=== PATIENT | male | born 1960 | race Two or more races ===

== ENCOUNTER 2023-01-24 17:59 | Emergency (ER) | payer SELFPAY ==
[~2023-01-24] VITALS: Ht 167.6 cm; Wt 68.0 kg
[2023-01-24] MEDS ORDERED: IBUPROFEN 400MG TABLET PO ONE (20:30)
[2023-01-25 04:00] VITALS: BP 118/72
[2023-01-25] MEDS ORDERED: CEPH500T PO (04:05)
[2023-01-25 05:15] LABS: CLARITY URINE CLEAR (CLEAR); COLOR URINE YELLOW (YELLOW); KETONES URINE 1+ (NEGATIVE); LEUKOCYTE ESTERASE URINE NEGATIVE (NEGATIVE); NITRITE URINE NEGATIVE (NEGATIVE); OCCULT BLOOD URINE NEGATIVE (NEGATIVE); PROTEIN URINE NEGATIVE (NEGATIVE); SPECIFIC GRAVITY URINE 1.027 (1.005-1.030); UROBILINOGEN URINE 0.2 E.U./dL (0.2-1.0)
== END 2023-01-25 11:54 | disposition home or self-care (01) ==
LOC: ER 17:59
DX: M79.10 Myalgia, unspecified site (principal); W18.39XA Other fall on same level, initial encounter; Y93.89 Activity, other specified; Y92.89 Other specified places as the place of occurrence of the external cause; Y99.8 Other external cause status; E11.9 Type 2 diabetes mellitus without complications
CPT/HCPCS: 72131; 72192; 73080; 73110; 73130; 81003; 99285; Z7610

== ENCOUNTER 2023-11-21 15:11 | Inpatient (IN) | payer MEDICAID ==
[~2023-11-21] VITALS: Ht 170.2 cm; Wt 64.4 kg
[~2023-11-21 15:11] MED LIST: GABA-532 PO; LANTUSUD SUBCUT
[2023-11-21 17:35] LABS: EOSINOPHILS % 0.4 % (0.0-5.0); HEMATOCRIT. 29.3 % (42.0-52.0); HEMOGLOBIN. 9.7 g/dL (14.0-18.0); MEAN CORPUSCULAR HEMOGLOBIN 27.2 pg (28.0-32.0); MEAN CORPUSCULAR HGB CONC 33.1 g/dL (31.0-37.0); MEAN CORPUSCULAR VOLUME 82.1 fL (80.0-94.0); MEAN PLATELET VOLUME 7.7 fl (7.4-10.4); MONOCYTES % 7.2 % (2.0-8.0); NEUTROPHILS % 71.4 % (40.0-76.0); PLATELET 434 x1000/uL (130-400); RED BLOOD CELL COUNT 3.57 mill/uL (4.7-6.1); RED CELL DISTRIBUTION WIDTH 19.1 % (11.6-14.6); WHITE BLOOD COUNT 7.7 x1000/uL (4.5-11.0)
[2023-11-21] MEDS ORDERED: ONDANSETRON HCL 4MG/2ML INJ IV NR (17:45)
[2023-11-21] MEDS ORDERED: FAMOTIDINE 20MG/2ML VIAL IV NR (17:45)
[2023-11-21] MEDS ORDERED: SODIUM CHLORIDE 0.9% 1,000 ML IV ONE (17:45)
[2023-11-21 17:51] LABS: ALANINE AMINOTRANSFERASE < 7 IU/L (10-49); ALBUMIN 3.9 g/dL (3.2-4.8); ASPARTATE AMINOTRANSFERASE 8 IU/L (<34); BILIRUBIN TOTAL 0.6 mg/dL (0.1-1.0); CALCIUM 9.4 mg/dL (8.7-10.4); CARBON DIOXIDE 25 mEq/L (21-32); CHLORIDE 100 mEq/L (98-107); GLUCOSE 155 mg/dL (70-105); POTASSIUM 3.4 mEq/L (3.5-5.1); PROTEIN TOTAL 7.3 g/dL (6.0-8.3); SODIUM 137 mEq/L (136-145); UREA NITROGEN BLOOD 21 mg/dL (9-23)
[2023-11-21 18:10] LABS: BETA HYDROXYBUTYRATE 1.1 mMol/L (0.0-0.3)
[2023-11-21 18:11] LABS: TROPONIN I HIGH SENSITIVITY < 4 ng/L (3.0-53)
[2023-11-21 21:08] LABS: CLARITY URINE CLOUDY (CLEAR); COLOR URINE DARK YELLOW (YELLOW); GLUCOSE URINE NEGATIVE (NEGATIVE); KETONES URINE 2+ (NEGATIVE); LEUKOCYTE ESTERASE URINE NEGATIVE (NEGATIVE); NITRITE URINE NEGATIVE (NEGATIVE); OCCULT BLOOD URINE NEGATIVE (NEGATIVE); PH URINE 6.5 (4.5-8.0); PROTEIN URINE 1+ (NEGATIVE); SPECIFIC GRAVITY URINE 1.024 (1.005-1.030)
[2023-11-21 21:22] LABS: BACTERIA URINE NONE SEEN; CALCIUM OXALATE CRYSTALS URINE 1+ /lpf; RBC URINE NONE SEEN /hpf (0-2); SQUAMOUS EPITHELIAL CELL URINE RARE /lpf (RARE/1+); WBC URINE NONE SEEN /hpf (0-2)
[2023-11-22 02:20] VITALS: BP 116/73; PULSE 89; RESP 18; TEMP 96.6
[2023-11-22] MEDS ORDERED: POTASSIUM CHLORIDE 20MEQ TABLET SR PO NR (03:45)
[2023-11-22] MEDS ORDERED: DEXTROSE 50% WATER 50ML SYRINGE IV PRN (03:45)
[2023-11-22] MEDS ORDERED: ONDANSETRON HCL 4MG/2ML INJ IV PRN (03:45)
[2023-11-22] MEDS: BLOOD SUGAR DIAGNOSTIC STRIP TEST SCH ×4 (06:25→20:25)
[2023-11-22] MEDS: INSULIN LISPRO 100 UNITS/ML SUBCUT SCH ×4 (06:26→20:41)
[2023-11-22 08:00] VITALS: BP 121/71; PULSE 86; RESP 18; TEMP 96.1
[2023-11-22 08:51] LABS: BASOPHILS % 0.7 % (0.0-2.0); EOSINOPHILS % 1.2 % (0.0-5.0); HEMATOCRIT. 28.7 % (42.0-52.0); HEMOGLOBIN. 9.2 g/dL (14.0-18.0); LYMPHOCYTES % 16.7 % (20.0-50.0); MEAN CORPUSCULAR HEMOGLOBIN 26.5 pg (28.0-32.0); MEAN CORPUSCULAR HGB CONC 32.1 g/dL (31.0-37.0); MEAN CORPUSCULAR VOLUME 82.7 fL (80.0-94.0); MONOCYTES % 7.7 % (2.0-8.0); NEUTROPHILS % 73.7 % (40.0-76.0); PLATELET 412 x1000/uL (130-400); RED BLOOD CELL COUNT 3.47 mill/uL (4.7-6.1); RED CELL DISTRIBUTION WIDTH 18.9 % (11.6-14.6); WHITE BLOOD COUNT 6.7 x1000/uL (4.5-11.0)
[2023-11-22 09:05] LABS: ALANINE AMINOTRANSFERASE < 7 IU/L (10-49); ALBUMIN 3.6 g/dL (3.2-4.8); ASPARTATE AMINOTRANSFERASE 10 IU/L (<34); BILIRUBIN TOTAL 0.4 mg/dL (0.1-1.0); CARBON DIOXIDE 22 mEq/L (21-32); CHLORIDE 107 mEq/L (98-107); CREATININE 0.8 mg/dL (0.6-1.3); GLUCOSE 83 mg/dL (70-105); PROTEIN TOTAL 6.9 g/dL (6.0-8.3); SODIUM 139 mEq/L (136-145); UREA NITROGEN BLOOD 17 mg/dL (9-23)
[2023-11-22] MEDS: ENOXAPARIN 40MG/0.4ML SYR SUBCUT SCH (11:47)
[2023-11-22 12:00] VITALS: BP 122/71; PULSE 87; RESP 19; TEMP 97.1
[2023-11-22 16:00] VITALS: BP 126/74; PULSE 88; RESP 20; TEMP 98.2
[2023-11-22] MEDS ORDERED: NALOXONE HCL 0.4MG/ML VIAL IV PRN (17:30)
[2023-11-22 20:00] VITALS: BP 135/45; PULSE 89; RESP 16; TEMP 97.1
[2023-11-22] MEDS: SODIUM HYPOCHLORITE 0.125% 473ML SOLUTION TOP SCH (20:34)
[2023-11-23] MEDS: BLOOD SUGAR DIAGNOSTIC STRIP TEST SCH ×4 (06:37→21:09)
[2023-11-23] MEDS: OMEPRAZOLE 20MG CAPSULE EXTENDED RELEASE PO SCH (06:38)
[2023-11-23] MEDS: INSULIN LISPRO 100 UNITS/ML SUBCUT SCH ×4 (07:50→21:11)
[2023-11-23 08:00] VITALS: BP 94/57; PULSE 91; RESP 18; TEMP 98.1
[2023-11-23] MEDS: SODIUM HYPOCHLORITE 0.125% 473ML SOLUTION TOP SCH ×2 (09:00→17:00)
[2023-11-23] MEDS: ENOXAPARIN 40MG/0.4ML SYR SUBCUT SCH (11:25)
[2023-11-23 12:00] VITALS: BP 88/53; PULSE 93; RESP 18; TEMP 98.8
[2023-11-23 16:00] VITALS: BP 114/74; PULSE 87; RESP 19; TEMP 97.9
[2023-11-23 20:00] VITALS: BP 95/56; PULSE 86; RESP 18; TEMP 98.1
[2023-11-23] MEDS: INSULIN GLARGINE 100 UNITS/ML SUBCUT SCH (21:22)
[2023-11-24] MEDS: BLOOD SUGAR DIAGNOSTIC STRIP TEST SCH ×4 (07:12→21:30)
[2023-11-24] MEDS: OMEPRAZOLE 20MG CAPSULE EXTENDED RELEASE PO SCH (07:56)
[2023-11-24 08:00] VITALS: BP 94/35; PULSE 88; RESP 19; TEMP 97.5
[2023-11-24] MEDS: SODIUM HYPOCHLORITE 0.125% 473ML SOLUTION TOP SCH ×2 (09:06→17:00)
[2023-11-24] MEDS: INSULIN LISPRO 100 UNITS/ML SUBCUT SCH ×5 (09:09→21:00)
[2023-11-24] MEDS: INSULIN GLARGINE 100 UNITS/ML SUBCUT SCH ×2 (10:00→21:30)
[2023-11-24] MEDS: ENOXAPARIN 40MG/0.4ML SYR SUBCUT SCH (11:27)
[2023-11-24 12:00] VITALS: BP 122/77; PULSE 60; RESP 19; TEMP 98.1
[2023-11-24 16:00] VITALS: BP 118/74; PULSE 86; RESP 19; TEMP 98.1
[2023-11-24] MEDS: ZOLPIDEM TARTRATE 5MG TABLET PO SCH (21:36)
[2023-11-25] MEDS: OMEPRAZOLE 20MG CAPSULE EXTENDED RELEASE PO SCH (06:35)
[2023-11-25] MEDS: BLOOD SUGAR DIAGNOSTIC STRIP TEST SCH ×3 (06:35→20:54)
[2023-11-25 08:00] VITALS: BP 107/73; PULSE 89; RESP 18; TEMP 97.9
[2023-11-25] MEDS: SODIUM HYPOCHLORITE 0.125% 473ML SOLUTION TOP SCH ×2 (09:00→17:00)
[2023-11-25] MEDS: ENOXAPARIN 40MG/0.4ML SYR SUBCUT SCH (09:22)
[2023-11-25] MEDS: INSULIN LISPRO 100 UNITS/ML SUBCUT SCH ×4 (09:32→21:09)
[2023-11-25] MEDS: INSULIN GLARGINE 100 UNITS/ML SUBCUT SCH ×2 (09:33→22:51)
[2023-11-25 20:00] VITALS: BP 97/51; PULSE 85; RESP 20; TEMP 97.9
[2023-11-25] MEDS: ZOLPIDEM TARTRATE 5MG TABLET PO SCH (20:56)
[2023-11-25] MEDS: HYDROCODONE/ACETAMINOPHEN 5/325MG TABLET PO PRN (21:12)
[2023-11-26] VITALS: BP 115/67; PULSE 87; RESP 20; TEMP 98.2
[2023-11-26 04:00] VITALS: BP 121/72; PULSE 79; RESP 18; TEMP 97.9
[2023-11-26] MEDS: BLOOD SUGAR DIAGNOSTIC STRIP TEST SCH ×3 (07:20→21:00)
[2023-11-26] MEDS: INSULIN LISPRO 100 UNITS/ML SUBCUT SCH ×3 (07:50→21:00)
[2023-11-26 08:00] VITALS: BP 127/79; PULSE 78; RESP 19; TEMP 96.4
[2023-11-26] MEDS: OMEPRAZOLE 20MG CAPSULE EXTENDED RELEASE PO SCH (08:38)
[2023-11-26] MEDS: INSULIN GLARGINE 100 UNITS/ML SUBCUT SCH ×2 (10:42→22:02)
[2023-11-26] MEDS: ENOXAPARIN 40MG/0.4ML SYR SUBCUT SCH (11:00)
[2023-11-26 12:00] VITALS: BP 93/53; PULSE 82; RESP 18; TEMP 97.7
[2023-11-26 16:00] VITALS: BP 108/68; PULSE 85; RESP 18; TEMP 98.1
[2023-11-26 20:00] VITALS: BP 91/55; PULSE 95; RESP 16; TEMP 98
[2023-11-26] MEDS: ZOLPIDEM TARTRATE 5MG TABLET PO SCH ×2 (21:37→23:57)
[2023-11-26] MEDS: HYDROCODONE/ACETAMINOPHEN 5/325MG TABLET PO PRN (21:41)
[2023-11-27] VITALS: BP 120/65; PULSE 61; RESP 19; TEMP 97.7
[2023-11-27 04:00] VITALS: BP 142/70; PULSE 81; RESP 20; TEMP 97.6
[2023-11-27] MEDS: OMEPRAZOLE 20MG CAPSULE EXTENDED RELEASE PO SCH (07:20)
[2023-11-27] MEDS: INSULIN LISPRO 100 UNITS/ML SUBCUT SCH ×2 (07:50→12:50)
[2023-11-27] MEDS: BLOOD SUGAR DIAGNOSTIC STRIP TEST SCH ×2 (08:00→12:20)
[2023-11-27] MEDS: SODIUM HYPOCHLORITE 0.125% 473ML SOLUTION TOP SCH (09:00)
[2023-11-27] MEDS: INSULIN GLARGINE 100 UNITS/ML SUBCUT SCH (09:56)
[2023-11-27] MEDS ORDERED: METO5TAB86 MT (12:28)
[2023-11-27] MEDS ORDERED: METF500T60 MT (12:28)
[2023-11-27] MEDS ORDERED: INSU100I28 SQ (12:28)
[2023-11-27 12:52] VITALS: BP 142/70; PULSE 81; TEMP 97.6; O2SAT 99
[2023-11-27] MEDS: ENOXAPARIN 40MG/0.4ML SYR SUBCUT SCH (13:44)
== END 2023-11-27 15:15 | disposition home or self-care (01) | DRG 720 ==
LOC: ER 15:11 → 6EST 22:14 → EDBEDREQ 22:39 → EDBEDREQSVC 22:39 → EDBEDREQTM 22:39
PROVIDERS: ADMIT Internal Medicine; ATTEND Internal Medicine
PROC: 0JBH0ZZ Excision of Left Lower Arm Subcutaneous Tissue and Fascia, Open Approach (ICD-10-PCS; principal; 2023-11-25)
PROC: 0JBN0ZZ Excision of Right Lower Leg Subcutaneous Tissue and Fascia, Open Approach (ICD-10-PCS; 2023-11-26)
DX: A41.9 Sepsis, unspecified organism (principal); G92.8 Other toxic encephalopathy; N17.9 Acute kidney failure, unspecified; E11.43 Type 2 diabetes mellitus with diabetic autonomic (poly)neuropathy; K31.84 Gastroparesis; L97.512 Non-pressure chronic ulcer of other part of right foot with fat layer exposed; D64.9 Anemia, unspecified; E11.621 Type 2 diabetes mellitus with foot ulcer; E87.6 Hypokalemia; K20.90 Esophagitis, unspecified without bleeding; L98.492 Non-pressure chronic ulcer of skin of other sites with fat layer exposed; S51.002A Unspecified open wound of left elbow, initial encounter; I10 Essential (primary) hypertension; Z99.3 Dependence on wheelchair; Z59.00 Homelessness unspecified; X58.XXXA Exposure to other specified factors, initial encounter; Y93.89 Activity, other specified; Y92.89 Other specified places as the place of occurrence of the external cause; Y99.8 Other external cause status
CPT/HCPCS: 36415; 74176; 76705; 80053; 81003; 82010; 82962; 83036; 84484; 85025; 97162; 97166; 97530; 99285; J1650; J1815; J2405; J3490